=== PATIENT | female | born 1985 | race Two or more races ===

== ENCOUNTER 2018-05-28 22:01 | Emergency (ER) | payer MEDICAID ==
[~2018-05-28] VITALS: Ht 157.5 cm; Wt 172.4 kg
[2018-05-28 22:15] VITALS: BP 181/97
== END 2018-05-29 03:14 | disposition home or self-care (01) ==
LOC: ER 22:01
DX: S93.401A Sprain of unspecified ligament of right ankle, initial encounter (principal); Z88.0 Allergy status to penicillin; W10.8XXA Fall (on) (from) other stairs and steps, initial encounter; Y93.01 Activity, walking, marching and hiking; Y92.89 Other specified places as the place of occurrence of the external cause; Y99.8 Other external cause status
CPT/HCPCS: 73610

== ENCOUNTER 2023-03-24 13:50 | Emergency (ER) | payer MEDICAID ==
[~2023-03-24] VITALS: Ht 157.5 cm; Wt 150.0 kg
[2023-03-24 14:57] VITALS: BP 143/92
[2023-03-24] MEDS ORDERED: ACETAMINOPHEN 500 MG TAB PO ONE (15:30)
[2023-03-24] MEDS ORDERED: TETANUS-DIPTH-ACEL PERTUSSIS 0.5ML SYR Tdap IM ONE (15:30)
[2023-03-24] MEDS ORDERED: ACET-1079 PO (15:58)
[2023-03-24] MEDS ORDERED: CEPH500T PO (15:58)
== END 2023-03-24 16:09 | disposition home or self-care (01) ==
LOC: ER 13:50
DX: S61.011A Laceration without foreign body of right thumb without damage to nail, initial encounter (principal); Z88.0 Allergy status to penicillin; W26.0XXA Contact with knife, initial encounter; Y93.89 Activity, other specified; Y92.89 Other specified places as the place of occurrence of the external cause; Y99.8 Other external cause status
CPT/HCPCS: 90471; 90715

== ENCOUNTER 2023-09-08 16:49 | Emergency (ER) | payer MEDICAID ==
[~2023-09-08] VITALS: Ht 157.5 cm; Wt 143.9 kg
[~2023-09-08 16:49] MED LIST: ACET-1079 PO; CEPH500T PO
[2023-09-08] MEDS ORDERED: ACET500T58 PO ×2 (21:05→23:24)
[2023-09-08] MEDS ORDERED: AZIT-43 PO (21:05)
[2023-09-08] MEDS ORDERED: PRED20TA2 PO (21:05)
[2023-09-09 00:51] VITALS: BP 169/96; PULSE 95; RESP 18; TEMP 97.7; O2SAT 98
== END 2023-09-08 23:13 | disposition home or self-care (01) ==
LOC: ER 16:49
DX: J06.9 Acute upper respiratory infection, unspecified (principal); I10 Essential (primary) hypertension; Z90.49 Acquired absence of other specified parts of digestive tract

== ENCOUNTER 2024-12-19 14:24 | Emergency (ER) | payer MEDICAID, SELFPAY ==
[~2024-12-19] VITALS: Ht 154.9 cm; Wt 136.1 kg
[~2024-12-19 14:24] MED LIST changes: +ACET500T58 PO; +AZIT-43 PO; +PRED20TA2 PO
[2024-12-19 14:54] VITALS: BP 144/102; PULSE 92; RESP 16; O2SAT 97
[2024-12-19] MEDS: HYDROcodone-ACET 5/325MG TAB PO ONE (14:54)
--- NOTE | 2024-12-19 15:03 | ED.PDOC ---
LEGAL DOCUMENT SPECIALIST HPI Comments 39 y.o female with PMHx of fibroids and HTN, presents to the ED for a chief complaint of heavy vaginal bleeding associated with intermittent abdominal cramping s/p starting menstrual cycle on 12/16/24. Patient reports bleeding is heavier, changing her pad every 30 minutes and experiencing cramping in which she took Tylenol today at 0700 for but had no relief. Patient denies any fever, chills, nausea, vomiting, back pain, dysuria. Chief Complaint: Vaginal Bleed Time Seen by MD: 14:30 Reviewed Notes: Nurses Notes, Medications, Allergies Allergies: Coded Allergies: Penicillins (Verified Allergy, Unknown, 05/28/18) Home Meds Active Scripts Medroxyprogesterone Acetate (PROVERA) 5 Mg Tab, 10 MG OR DAILY for 10 Days, #20 TAB Prov:ISI POWELL MD 12/19/24 Dicyclomine Hcl (BENTYL CAPSULE) 10 Mg Cp, 2 CAP PO Q6HP PRN, #30 CAP 11 Refills Prov:ISI POWELL MD 12/19/24 Hydrocodone-Acetaminophen (Hydrocodone Bitartrate/AC 5-325 mg) 1 Tab Tab, 1 TAB PO Q6HP PRN, #10 TAB Prov:ISI POWELL MD 12/19/24 Acetaminophen (Acetaminophen) 500 Mg Tab, 500 MG PO QIDP, #30 TAB 0 Refills Prov:ANI WRIGHT 09/08/23 Azithromycin (Azithromycin) 250 Mg Tab, 250 MG PO DAILY MDD 500 for 5 Days, #6 TAB 0 Refills 2 TABLETS ORALLY ON DAY ONE, THEN 1 TABLET ORALLY DAILY FOR 4 DAYS Prov:ANI WRIGHT 09/08/23 Prednisone (Prednisone) 20 Mg Tab, 20 MG PO BID for 5 Days, #10 TAB 0 Refills Prov:ANI WRIGHT 09/08/23 Acetaminophen (Tylenol) 325 Mg Tb, 325 MG PO Q4HPRN PRN, #30 TAB 0 Refills Take 1-2 caps po q4h prn for pain (Do not exceed 3,000mg of acetaminophen in 24 hours) Prov:ABELARDO GOMEZ 03/24/23 Cephalexin Monohydrate (Cephalexin) 500 Mg Tab, 1 TAB PO QID for 7 Days, #28 TAB 0 Refills Prov:ABELARDO GOMEZ [facility] 03/24/23 Information Source: Patient Mode of Arrival: Ambulatory Timing: Days (3) Severity: Moderate Vaginal Discharge: None Vaginal Lesions: None Bleeding Quality: Bright Red, Dark Vaginal Mass: None Onset Of Mass/Bleeding: Spontaneous Sexual Activity: Neither Last Consensual [place]: Unknown Control: None Symptoms of Possible : None Associated Signs and Symptoms: Vaginal Bleeding, Cramping Past Medical History PAST MEDICAL HISTORY: Gallstones, HTN Surgical History: Cholecystectomy Surgical History (Other): gastric bypass ONLINE MERCHANDISING COORDINATOR History: Uterine Fibroids Family History Family History: Unknown Social History Smoker: Non-Smoker Alcohol: Denies ETOH Use Drugs: Denies Drug Use Lives In: Home Constitutional: denies: chills, diaphoresis, fatigue, fever, malaise, sweats, weakness, others EENTM: denies: blurred vision, double vision, ear bleeding, ear discharge, ear drainage, ear pain, ear ringing, eye pain, eye redness, hearing loss, mouth pain, mouth swelling, nasal discharge, nose bleeding, nose congestion, nose pain, photophobia, tearing, throat pain, throat swelling, voice changes, others Respiratory: denies: cough, hemoptysis, orthopnea, SOB at rest, shortness of breath, SOB with excertion, stridor, wheezing, others Cardiovascular: denies: chest pain, dizzy spells, diaphoresis, Dyspnea on exertion, edema, irregular heart beat, left arm pain, lightheadedness, palpitations, PND, syncope, others Gastrointestinal: reports: abdominal pain; denies: abdomen distended, blood streaked bowels, constipated, diarrhea, dysphagia, difficulty swallowing, hematemesis, melena, nausea, poor appetite, poor fluid intake, rectal bleeding, rectal pain, vomiting, others Genitourinary: reports: abnormal vagina bleeding, pain; denies: burning, dyspareunia, dysuria, flank pain, frequency, hematuria, incontinence, , vagina discharge, urgency, others Neurological: denies: dizziness, fainting, headache, left sided numbness, left sided weakness, numbness, paresthesia, pre-existing deficit, right sided numbness, right sided weakness, seizure, speech problems, tingling, tremors, weakness, others Musculoskeletal: denies: back pain, gout, joint pain, joint swelling, muscle pain, muscle stiffness, neck pain, others Integumetry: denies: bruises, change in color, change in hair/nails, dryness, laceration, lesions, lumps, rash, wounds, others Allergic/Immunocompromised: denies: Difficulty Healing, Frequent Infections, Hives, Itching, others Hematologic/Lymphatic: denies: anemia, blood clots, easy bleeding, easy bruising, swollen glands, others Endocrine: denies: excessive hunger, excessive sweating, excessive thirst, excessive urination, flushing, intolerance to cold, intolerance to heat, unexplained weight gain, unexplained weight loss, others Psychiatric: denies: anxiety, bipolar disorder, depression, hopeless, panic disorder, schizophrenia, sleepless, suicidal, others All Other Systems: Reviewed and Negative Physical Exam General Appearance: No Apparent Distress HEENT: PERRL/EOMI Neck: Full Range of Motion, Normal Inspection Respiratory: Lungs Clear, No Accessory Muscle Use, No Respiratory Distress, Normal Breath Sounds Cardiovascular: No Edema, No JVD, Regular Rate/Rhythm Breast Exam: Deferred Gastrointestinal: Non Tender, Soft Genitalia: Deferred Pelvic: Deferred Rectal: Deferred Extremities: Normal inspection, Normal range of motion, Non-tender, No pedal edema Neurologic: Alert (Oriented x4), Normal Affect, Normal Mood, Other (Ambulatory. No gross focal deficit.) Cerebellar Function: NOT DONE Reflexes: NOT DONE Skin: Dry, Normal Color, Warm Lymphatic: NOT DONE Was a procedure done? Was a procedure done?: No Differential Diagnosis (ONLINE MERCHANDISING COORDINATOR) Vaginal Bleeding: Blood Loss Anemia, Cervicitis, Hormonal, Menorrhagia, Menstrual Bleeding, Myomatous Uterus, PID, UTI Vaginal Discharge: Comments Coagulopathy, uterine fibroids, among others X-Ray, Labs, Meds, VS Vital Signs Date Time Temp Pulse Resp B/P (MAP) Pulse Ox O2 Delivery O2 Flow Rate FiO2 12/19/24 14:54 92 16 144/102 (116) 97 12/19/24 14:54 92 16 97 Room Air* 0 21 12/19/24 14:40 98.1 94 18 156/82 (106) 96 Lab Test 12/19/24 14:55 12/19/24 14:38 Range/Units Urine Color Red H Yellow Urine Clarity Ex.turbid Clear Urine pH 5.5 5.0-9.0 Urine Specific [place] 1.040 H 1.001-1.035 Urine Protein 2+ H Negative Urine Ketones Negative Negative Urine Blood 3+ H Negative /uL Urine Nitrite Negative Negative Urine Bilirubin Negative Negative Urine Urobilinogen Normal Negative mg/dL Urine Leukocyte Esterase 2+ Negative /uL Urine RBC None seen 0 - 4 /hpf Urine Microscopic WBC 0-5 /HPF Urine Squamous Epithelial Cells None seen <5 /hpf Urine Bacteria None seen None Seen /hpf Urine Glucose Normal Normal mg/dL White Blood Count 11.1 H 4.4-10.8 10^3/uL Red Blood Count 4.40 4.0-5.20 10^6/uL Hemoglobin 11.5 L 12.2-16.2 g/dL Hematocrit 35.0 L 36.0-46.0 % Mean Corpuscular Volume 79.4 L 80.0-100.0 fL Mean Corpuscular Hemoglobin 26.1 L 28.0-32.0 pg Mean Corpuscular Hemoglobin Concent 32.9 32.0-36.0 g/dL Red Cell Distribution Width 14.5 H 11.8-14.3 % Platelet Count 401 140-450 10^3/uL Mean Platelet Volume 8.4 6.9-10.8 fL Neutrophils (%) (Auto) 65.2 37.0-80.0 % Lymphocytes (%) (Auto) 27.2 10.0-50.0 % Monocytes (%) (Auto) 5.2 0.0-12.0 % Eosinophils (%) (Auto) 1.7 0.0-7.0 % Basophils (%) (Auto) 0.7 0.0-2.0 % Neutrophils # (Auto) 7.3 1.6-8.6 10 ^3/uL Lymphocytes # (Auto) 3.0 0.4-5.4 10 ^3/uL Monocytes # (Auto) 0.6 0-1.3 10 ^3/uL Eosinophils # (Auto) 0.2 0-0.8 10 ^3/uL Basophils # (Auto) 0.1 0-0.2 10 ^3/uL Nucleated Red Blood Cells 0.1 % Prothrombin Time 10.6 9.3-11.8 sec Prothrombin Time INR 1.00 0.9-1.15 Activated Partial Thromboplast Time 26.7 24.5-34.5 SEC Sodium Level 143 136-145 mmol/L Potassium Level 3.6 3.5-5.1 mmol/L Chloride Level 108 H 98-107 mmol/L Carbon Dioxide Level 25 20-31 mmol/L Anion Gap 10 5-15 Blood Urea Nitrogen 19 9-23 mg/dL Creatinine 0.75 0.550-1.02 mg/dL Glomerular Filtration Rate Calc 104 >90 mL/min BUN/Creatinine Ratio 25.3 H 10.0-20.0 Serum Glucose 119 H 74-106 mg/dL Calcium Level 8.8 8.7-10.4 mg/dL Beta HCG, Quantitative 0.7 L 1.5-4.2 mIU/mL Current Medications Medications (Trade) Dose Ordered Sig/Anthony Route Start Time Stop Time Status Last Admin Acetaminophen/ Hydrocodone Bitart (Stanley 5/325MG Tab) 1 tab ONCE ONCE PO 12/19/24 14:45 12/19/24 14:46 DC 12/19/24 14:54 [place] [address] Ph: [phone] DIAGNOSTIC IMAGING Diagnostic Imaging Report : [id number] Signed PATIENT: BO PARDO ACCT: [id number] UNIT: [id number] : 1985 LOC: ER ROOM / BED: / AGE / SEX: 39 / F ADM STATUS: REG ER SERVICE 1428 ORDERING PHYSICIAN: ISI POWELL MD PROCEDURE(s): PELUS - PELVIC REASON: VAG BLEED ORDER NUMBER(s): [id number], ACCESSION NUMBER(s): [id number] INDICATION: VAG BLEED TECHNIQUE: Multiple real-time grayscale transabdominal sonographic images along with color and duplex Doppler of the uterus and ovaries were obtained. COMPARISON: None Comments: Per claim clerk, exam is suboptimal due to patient body habitus and shadowing associated with calcification. FINDINGS: The uterus measures 11.1 x 8.7 x 9.7 cm. The endometrial stripe measures 1.1 cm and there is a question of trace endocervical fluid. There are multiple uterine lesions including a heterogenous structure measuring up to 4.7 cm and a calcified structure measuring up to 3.6 cm. An intrauterine device is in place. Right ovary measures 4.5 x 2.5 x 3.5 cm with normal Doppler color flow Left ovary measures 2.6 x 1.6 x 2.2 cm with normal Doppler color flow IMPRESSION: Suboptimal exam due to body habitus and artifact associated with calcifications. 1. Multiple uterine fibroids with some being calcified. The largest fibroid measures up to 4.7 cm. 2. Endometrial thickness is 1.1 cm and there is questionable endocervical fluid. IUD is in place. 3. Ovaries are unremarkable. ATED BY: SILVANA FOSTER DO DICTATED DATE/TIME: 12/19/241634 SIGNED BY: SILVANA FOSTER DO SIGNED DATE/TIME: 12/19/241634 CC: X-Ray, Labs, Meds, VS Comment 39 y.o female with PMHx of fibroids and HTN, presents to the ED for a chief complaint of heavy vaginal bleeding associated with intermittent abdominal cramping s/p starting menstrual cycle on 12/16/24. Vitals remarkable for BP 144/102 Exam unremarkable Rhythm strip independently interpreted by me: Sinus rhythm, rate 94, no ectopy. Pelvic ultrasound: IMPRESSION: Suboptimal exam due to body habitus and artifact associated with calcifications. 1. Multiple uterine fibroids with some being calcified. The largest fibroid measures up to 4.7 cm. 2. Endometrial thickness is 1.1 cm and there is questionable endocervical fluid. IUD is in place. 3. Ovaries are unremarkable. CBC remarkable for WBC 11.1, hemoglobin 11.5, hematocrit 35, platelets normal Metabolic panel unremarkable, hCG negative, coag panel normal, UA unremarkable Patient treated with the following in the ED: Stanley 5/325 mg p.o. On re-evaluation, patient stated pain had improved. Abdominal exam was benign. She appears stable for outpatient treatment and close follow-up with her OBGYN Rx Mihaela, Stanley, Provera Time of 1ST Reevaluation: 14:59 Reevaluation 1ST: Unchanged Patient Education/Counseling: Diagnosis, Treatment, Prognosis Family Education/Counseling: No Family Present Departure 1 Departure Time of Disposition: 20:00 Impression: Primary Impression: Vaginal bleeding Additional Impression: Uterine fibroid Qualified Codes: D25.9 - Leiomyoma of uterus, unspecified Disposition: 01 HOME / SELF CARE / HOMELESS Condition: Stable Additional Instructions: Your blood tests showed your mildly anemic and do not require a blood tr ansfusion. Your hemoglobin was 11.5 and hematocrit was 35. Your other lab tests were unremarkable. Your ultrasound showed uterine fibroids. Please see the report below. Follow-up with your OBGYN in 1-2 days for further evaluation. I have prescribed pain medication and medication that may help decrease or stopped the bleeding. [place] [address] Ph: [phone] DIAGNOSTIC IMAGING Diagnostic Imaging Report : [id number] Signed PATIENT: BO PARDO ACCT: [id number] UNIT: [id number] : 1985 LOC: ER ROOM / BED: / AGE / SEX: 39 / F ADM STATUS: REG ER SERVICE 1428 ORDERING PHYSICIAN: ISI POWELL MD PROCEDURE(s): PELUS - PELVIC REASON: VAG BLEED ORDER NUMBER(s): [id number], ACCESSION NUMBER(s): [id number] INDICATION: VAG BLEED TECHNIQUE: Multiple real-time grayscale transabdominal sonographic images along with color and duplex Doppler of the uterus and ovaries were obtained. COMPARISON: None Comments: Per claim clerk, exam is suboptimal due to patient body habitus and shadowing associated with calcification. FINDINGS: The uterus measures 11.1 x 8.7 x 9.7 cm. The endometrial stripe measures 1.1 cm and there is a question of trace endocervical fluid. There are multiple uterine lesions including a heterogenous structure measuring up to 4.7 cm and a calcified structure measuring up to 3.6 cm. An intrauterine device is in place. Right ovary measures 4.5 x 2.5 x 3.5 cm with normal Doppler color flow Left ovary measures 2.6 x 1.6 x 2.2 cm with normal Doppler color flow IMPRESSION: Suboptimal exam due to body habitus and artifact associated with calcifications. 1. Multiple uterine fibroids with some being calcified. The largest fibroid measures up to 4.7 cm. 2. Endometrial thickness is 1.1 cm and there is questionable endocervical fluid. IUD is in place. 3. Ovaries are unremarkable. ATED BY: SILVANA FOSTER DO DICTATED DATE/TIME: 12/19/24 1635 e-Prescriptions Medroxyprogesterone Acetate (PROVERA) 5 Mg Tab 10 MG OR DAILY for 10 Days, #20 TAB Prov: ISI POWELL MD 12/19/24 Dicyclomine Hcl (BENTYL CAPSULE) 10 Mg Cp 2 CAP PO Q6HP PRN, #30 CAP 11 Refills Prov: ISI POWELL MD 12/19/24 Hydrocodone-Acetaminophen (Hydrocodone Bitartrate/AC 5-325 mg) 1 Tab Tab 1 TAB PO Q6HP PRN, #10 TAB Prov: ISI POWELL MD 12/19/24 Discharged With: Relative Critical Care Note Critical Care Time?: No Stability Stability form required: No Heart Score Heart Score: Heart Score Response (Comments) Value History N/A 0 EKG N/A 0 Age N/A 0 Risk Factors N/A 0 Troponin N/A 0 Total 0 I personally scribed for ISI POWELL MD ([email or web address]) on 12/19/24 at 15:03. Electronically submitted by Kimberli Jacinto ([facility]). I personally scribed for ISI POWELL MD ([email or web address]) on 12/19/24 at 15:03. Electronically submitted by Kimberli Jacinto ([facility]). I personally scribed for ISI POWELL MD ([email or web address]) on 12/19/24 at 17:5 6. Electronically submitted by Kimberli Jacinto ([facility]). ISI POWELL MD Dec 19, 2024 15:03
[2024-12-19 15:04] LABS: Basophils # (auto) 0.1 10 ^3/uL (0-0.2); Basophils % (auto) 0.7 % (0.0-2.0); Eosinophils # (auto) 0.2 10 ^3/uL (0-0.8); Eosinophils % (auto) 1.7 % (0.0-7.0); Hemoglobin 11.5 g/dL (12.2-16.2); Lymphocytes % (auto) 27.2 % (10.0-50.0); Mean Corpuscular Hemoglobin 26.1 pg (28.0-32.0); Mean Corpuscular Hgb Conc. 32.9 g/dL (32.0-36.0); Mean Corpuscular Volume 79.4 fL (80.0-100.0); Monocytes # (auto) 0.6 10 ^3/uL (0-1.3); Monocytes % (auto) 5.2 % (0.0-12.0); Neutrophils # (auto) 7.3 10 ^3/uL (1.6-8.6); Neutrophils % (auto) 65.2 % (37.0-80.0); Nucleated Red Blood Cells % 0.1 %; Platelet Count (auto) 401 10^3/uL (140-450); Red Cell Distribution Width 14.5 % (11.8-14.3); White Blood Cell 11.1 10^3/uL (4.4-10.8)
[2024-12-19 15:10] LABS: Potassium 3.6 mmol/L (3.5-5.1); Sodium 143 mmol/L (136-145)
[2024-12-19 15:11] LABS: Anion Gap 10 (5-15); Calcium 8.8 mg/dL (8.7-10.4); Carbon Dioxide 25 mmol/L (20-31)
[2024-12-19 15:15] LABS: Partial Thromboplastin Time 26.7 SEC (24.5-34.5); Prothrombin Time 10.6 sec (9.3-11.8)
[2024-12-19 15:16] LABS: BUN/Creatinine Ratio 25.3 (10.0-20.0); Blood Urea Nitrogen 19 mg/dL (9-23)
[2024-12-19 15:17] LABS: Urine Bacteria None Seen /hpf (None Seen)
[2024-12-19 15:18] LABS: Chloride 108 mmol/L (98-107); Glucose 119 mg/dL (74-106)
[2024-12-19 15:48] LABS: Urine Blood 3+ /uL (Negative); Urine Clarity Ex.Turbid (Clear); Urine Color Red (Yellow); Urine Protein, UAD 2+ (Negative); Urine Squamous Epithelial Cell None Seen /hpf (<5); Urine Urobilinogen Normal (Negative); Urine pH 5.5 (5.0-9.0)
--- NOTE | 2024-12-19 16:38 | DVH ---
INDICATION: VAG BLEED TECHNIQUE: Multiple real-time grayscale transabdominal sonographic images along with color and duplex Doppler of the uterus and ovaries were obtained. COMPARISON: None Comments: Per passenger flagman, exam is suboptimal due to patient body habitus and shadowing associated wi th calcification. FINDINGS: The uterus measures 11.1 x 8.7 x 9.7 cm. The endometrial stripe measures 1.1 cm and there is a questi on of trace endocervical fluid. There are multiple uterine lesions including a heterogenous structure measuring up to 4.7 cm and a calcified structure measuring up to 3.6 cm. An intrauterine device is i n place. Right ovary measures 4.5 x 2.5 x 3.5 cm with normal Doppler color flow Left ovary measures 2.6 x 1.6 x 2.2 cm with normal Doppler color flow IMPRESSION: Suboptimal exam due to body habitus and artifact associated with calcifications. 1. Multiple uterine fibroids with some being calcified. The largest fibroid measures up to 4.7 cm. 2. Endometrial thickness is 1.1 cm and there is questionable endocervical fluid. IUD is in place. 3. Ovaries are unremarkable.
[2024-12-19] MEDS ORDERED: MEDR5TAB28 OR (20:03)
[2024-12-19] MEDS ORDERED: HYDR-4902 PO (20:03)
[2024-12-19] MEDS ORDERED: DICY10CA PO (20:03)
== END 2024-12-19 20:32 | disposition home or self-care (01) ==
LOC: ER 14:24
DX: N93.9 Abnormal uterine and vaginal bleeding, unspecified (principal); D25.9 Leiomyoma of uterus, unspecified; I10 Essential (primary) hypertension; Z90.49 Acquired absence of other specified parts of digestive tract; Z88.0 Allergy status to penicillin; Z98.84 Bariatric surgery status; Z79.52 Long term (current) use of systemic steroids; Z79.899 Other long term (current) drug therapy
CPT/HCPCS: 36415; 76856; 80048; 81001; 84702; 85025; 85610; 85730